=== PATIENT | male | born 1960 | race Caucasian/White ===

== ENCOUNTER 2018-02-22 06:31 | Day surgery (SDC) | payer MEDICARE ==
[2018-02-21 15:28] VITALS: BMI 31.4
[2018-02-22] MEDS ORDERED: PROPOFOL 200 MG/20 ML VIAL ONE (08:22)
[2018-02-22] MEDS ORDERED: Lidocaine 1% PF 5 ML VIAL ONE (08:22)
--- NOTE | 2018-02-22 15:58 | OP ---
DATE OF PROCEDURE: 02/21/2018 PREPROCEDURE DIAGNOSES: 1. Personal history of colon polyps. 2. Personal history of Arce's esophagus. POSTPROCEDURE DIAGNOSES: 1. Short-segment Arce's esophagus with no overt evidence of mass or lesions, biopsies obtained. 2. Colonoscopy with extremely poor prep. Two polyps were found and removed. One was a centimeter in size and the other was a half a centimeter in size. These were from the ascending colon. 3. Redundant colon with extremely poor prep prohibited us after irrigation with 2 L of sterile water. No large obstructing tumors or masses were seen, but could not rule out other lesions. RECOMMENDATIONS: Repeat colonoscopy in three months depending on results of pathology of the polyps removed. ANESTHESIA: TIVA. PROCEDURE IN DETAIL: The patient was informed of the risks, benefits, possible complications of the endoscopy including perforation, bleeding, reaction to medication, and aspiration. Informed consent was obtained. The patient was brought to endoscopy suite, where he was sedated in the gradual fashion. Once he was comfortable, a bite block was placed . The endoscope was advanced to the esophagus, stomach, second, and third portions of the duodenum. These were removed. There was good visualization of the mucosa. The esophagus was normal for short-segment Arce's esophagus. Biopsies were obtained. There were no gross abnormalities in mucosa endoscopically. The stomach was normal and the duodenum was normal. Retroflexed views in the stomach normal. The scope was removed. The patient was turned to the room and a rectal examination was performed, which revealed no abnormalities. The prep was noted to be poor. The endoscope was advanced through the anal canal through the colon to the cecum. There were tremendous amount of stool both formed and loose. The colon was irrigated with about 2 L of sterile water and we still could not obtain an adequate prep. Two polyps removed, which were 1 cm and 0.5 cm in size, 1 in the right colon and 1 on the descending. Retroflexed views in the rectum were incomplete secondary to poor prep. The scope was removed. The patient tolerated the procedure well with no complications. Job ID: [id number]
== END 2018-02-22 11:35 | disposition home or self-care (01) ==
LOC: SDC 06:31
PROVIDERS: ATTEND Internal Medicine Gastroenterology
PROC: 0DBK8ZZ Excision of Ascending Colon, Via Natural or Artificial Opening Endoscopic (ICD-10-PCS; principal; 2018-02-22)
PROC: 0DBM8ZZ Excision of Descending Colon, Via Natural or Artificial Opening Endoscopic (ICD-10-PCS; 2018-02-22)
PROC: 0DB48ZZ Excision of Esophagogastric Junction, Via Natural or Artificial Opening Endoscopic (ICD-10-PCS; 2018-02-22)
DX: Z12.11 Encounter for screening for malignant neoplasm of colon (principal); K22.70 Barrett's esophagus without dysplasia; D12.2 Benign neoplasm of ascending colon; Z86.010 Personal history of colon polyps; K63.5 Polyp of colon
CPT/HCPCS: 88305; 88312; 88313; J2001; J2704

== ENCOUNTER 2018-04-05 05:48 | Day surgery (SDC) | payer MEDICARE ==
[2018-04-04 12:15] VITALS: BMI 30.6
[2018-04-05] MEDS ORDERED: Fleet Enema 133 ML BOT FS SCH ×2 (09:15→09:45)
[2018-04-05] MEDS ORDERED: Lidocaine 1% PF 5 ML VIAL ONE ×2 (14:24)
[2018-04-05] MEDS ORDERED: PROPOFOL 200 MG/20 ML VIAL ONE ×2 (14:24)
== END 2018-04-05 11:38 | disposition home or self-care (01) ==
LOC: SDC 05:48
PROVIDERS: ATTEND Internal Medicine Gastroenterology
DX: Z12.11 Encounter for screening for malignant neoplasm of colon (principal); Z86.010 Personal history of colon polyps; Z53.8 Procedure and treatment not carried out for other reasons; Z79.82 Long term (current) use of aspirin; Z79.2 Long term (current) use of antibiotics; Z79.4 Long term (current) use of insulin; Z79.52 Long term (current) use of systemic steroids; Z79.899 Other long term (current) drug therapy
CPT/HCPCS: 36416; J2001; J2704

== ENCOUNTER 2018-04-08 05:44 | Day surgery (SDC) | payer MEDICARE ==
[2018-04-05 14:34] VITALS: BMI 32.1
--- NOTE | 2018-04-08 12:29 | OP ---
DATE OF PROCEDURE: 04/08/2018 PROCEDURE: Colonoscopy with polypectomy. PREPROCEDURE DIAGNOSES: 1. Prior history of colon polyps. 2. History of lung transplant. 3. History of difficult prep. We had re-prepped him from last Sunday as he was not clear of that exam. POSTOPERATIVE DIAGNOSIS: A 5-mm polyp sigmoid colon, sessile, removed by cold snare polypectomy. RECOMMENDATIONS: Repeat colonoscopy in 5 years. ANESTHESIA: TIVA. DESCRIPTION OF PROCEDURE: The patient was informed of the risks, benefits, and possible complications of endoscopy including perforation, reaction to medication, and aspiration, informed consent was obtained. The patient was brought to the endoscopy suite, where he was sedated in gradual fashion. Once he was comfortable, a rectal exam was performed. The endoscope was advanced through the anal canal through the colon to the cecum, which was identified by the ileocecal valve and appendiceal orifice. The prep was much better and we were able to complete the exam at this time, however, we used about 500 mL of irrigation to clean the colon completely. The cecum was normal. Terminal ileum was normal. Forward and retroflexed views in the rectum were normal. There was a 5-mm sessile sigmoid colon polyp removed by cold snare polypectomy and submitted to Pathology. The scope was removed. The patient tolerated the procedure well. No other complications. Job ID: [id number]
[2018-04-08] MEDS ORDERED: PROPOFOL 200 MG/20 ML VIAL ONE (15:30)
[2018-04-08] MEDS ORDERED: Lidocaine 1% PF 5 ML VIAL ONE (15:30)
== END 2018-04-08 10:54 | disposition home or self-care (01) ==
LOC: SDC 05:44
PROVIDERS: ATTEND Internal Medicine Gastroenterology
PROC: 0DBN8ZX Excision of Sigmoid Colon, Via Natural or Artificial Opening Endoscopic, Diagnostic (ICD-10-PCS; principal; 2018-04-08)
DX: Z12.11 Encounter for screening for malignant neoplasm of colon (principal); K63.5 Polyp of colon; Z86.010 Personal history of colon polyps; Z79.4 Long term (current) use of insulin; Z79.2 Long term (current) use of antibiotics; Z79.82 Long term (current) use of aspirin; Z79.899 Other long term (current) drug therapy
CPT/HCPCS: 36416; 88305

== ENCOUNTER 2021-08-25 08:40 | Outpatient (CLI) | payer MEDICARE | END 2021-08-25 08:41 | disposition home or self-care (01) | LOC: LABBT 08:40 | PROVIDERS: ATTEND Internal Medicine Gastroenterology | DX: U07.1 COVID-19 (principal) | CPT/HCPCS: U0003; U0005 ==

== ENCOUNTER 2021-10-11 06:25 | Day surgery (SDC) | payer MEDICARE ==
[2021-10-07 09:36] VITALS: BMI 28.2
[2021-10-11] MEDS ORDERED: Lidocaine 1% PF 5 ML VIAL ONE (08:47)
[2021-10-11] MEDS ORDERED: PROPOFOL 200 MG/20 ML VIAL ONE (08:47)
== END 2021-10-11 10:20 | disposition home or self-care (01) ==
LOC: SDC 06:25
PROVIDERS: ATTEND Internal Medicine Gastroenterology
PROC: 0DB38ZX Excision of Lower Esophagus, Via Natural or Artificial Opening Endoscopic, Diagnostic (ICD-10-PCS; principal; 2021-10-11)
PROC: 0DBH8ZX Excision of Cecum, Via Natural or Artificial Opening Endoscopic, Diagnostic (ICD-10-PCS; 2021-10-11)
PROC: 0DBL8ZX Excision of Transverse Colon, Via Natural or Artificial Opening Endoscopic, Diagnostic (ICD-10-PCS; 2021-10-11)
PROC: 0DBM8ZX Excision of Descending Colon, Via Natural or Artificial Opening Endoscopic, Diagnostic (ICD-10-PCS; 2021-10-11)
DX: D12.0 Benign neoplasm of cecum (principal); D12.3 Benign neoplasm of transverse colon; K22.70 Barrett's esophagus without dysplasia; K57.30 Diverticulosis of large intestine without perforation or abscess without bleeding; R19.7 Diarrhea, unspecified; K21.9 Gastro-esophageal reflux disease without esophagitis; E11.9 Type 2 diabetes mellitus without complications; I10 Essential (primary) hypertension; E78.00 Pure hypercholesterolemia, unspecified; Z86.010 Personal history of colon polyps; Z86.16 Personal history of COVID-19; Z79.2 Long term (current) use of antibiotics; Z79.4 Long term (current) use of insulin; Z79.52 Long term (current) use of systemic steroids; Z79.82 Long term (current) use of aspirin; Z79.83 Long term (current) use of bisphosphonates; Z79.899 Other long term (current) drug therapy; Z94.2 Lung transplant status
CPT/HCPCS: 36416; 88305; 88313; J2704